=== PATIENT | male | born 1955 ===

== ENCOUNTER 2020-11-10 17:33 | Emergency (ER) | payer BC ==
[2020-11-10] MEDS: Acetaminophen 325 MG Tab PO ONE (18:12)
[2020-11-10] MEDS: Ondansetron 4 MG/2 ML SDV IVPUSH ONE (18:14)
--- NOTE | 2020-11-10 18:14 | EDM.PDOC ---
<Janet Moralez - Last Filed: 11/10/20 18:13> ED HPI GENERAL MEDICAL PROBLEM - General Chief Complaint: Respiratory Problem Stated Complaint: AMBULANCE Time Seen by Provider: 11/10/20 18:13 Source of Information: Reports: Patient, EMS, RN, RN Notes Reviewed History Limitations: Reports: No Limitations - History of Present Illness INITIAL COMMENTS - FREE TEXT/NARRATIVE: Zurdo is a 65 y/o male who presents to the ED via [facility] - Related Data Allergies Allergy/AdvReac Type Severity Reaction Status Date / Time No Known Allergies Allergy Verified 11/10/20 18:04 Past Medical History Endocrine/Metabolic History: Reports: Diabetes, Type II - Infectious Disease History Infectious Disease History: Reports: None - Past Surgical History Musculoskeletal Surgical History: Reports: Other (See Below) Other Musculoskeletal Surgeries/Procedures:: knee surgery Social & Family History - Family History Family Medical History: Unobtainable - Tobacco Use Tobacco Use Status *Q: Never Tobacco User Second Hand Smoke Exposure: No - Caffeine Use Caffeine Use: Reports: Coffee - Recreational Drug Use Recreational Drug Use: No Departure - Departure Disposition: Home, Self-Care 01 Clinical Impression: NSTEMI (non-ST elevated myocardial infarction) - Discharge Information Forms: ED Department Discharge <Leslee Steen Gilmar - Last Filed: 11/10/20 22:13> ED HPI GENERAL MEDICAL PROBLEM - History of Present Illness INITIAL COMMENTS - FREE TEXT/NARRATIVE: 18:40 Pt is here because he has not been feeling well for the last 3 days with a fever. He has been working in the [employer] and does not take his diabetes medications until later in the day as he doesn't like getting low while working. He denies any respiratory complaint, but was noted to have a low oxygen saturation and was started on NC. He denies any cough or shortness of breath. He did throw up once today. No diarrhea or constipation. He denies any pain anywhere. He denies any known exposure to COVID and did have his J&J vaccine in March. He denies any pulmonary problems outside of being sick. ED ROS GENERAL - Review of Systems Review Of Systems: Comprehensive ROS is negative, except as noted in HPI. ED EXAM, GENERAL - Physical Exam Exam: See Below Exam Limited By: No Limitations General Appearance: Alert, WD/WN, No Apparent Distress Eye Exam: Bilateral Eye: Normal Inspection Ears: Normal External Exam Throat/Mouth: Normal Voice, No Airway Compromise Head: Atraumatic, Normocephalic Neck: Supple, Non-Tender Respiratory/Chest: No Respiratory Distress, Lungs Clear, Normal Breath Sounds, No Accessory Muscle Use, Chest Non-Tender Cardiovascular: Normal Peripheral Pulses, Regular Rate, Rhythm, No Murmur GI/Abdominal: Soft, Non-Tender, No Distention (Male) Exam: Deferred Rectal (Males) Exam: Deferred Back Exam: Normal Inspection, Full Range of Motion Extremities: Other (left great toe callus with bleeding and moderate surrounding erythema.) Neurological: Alert, Oriented, Normal Cognition, No Motor/Sensory Deficits Psychiatric: Normal Affect Skin Exam: Warm, Dry #1 Interpretation EKG Date: 11/10/20 Rhythm: Other (sinus tachycardia with multiple PVCs) Bagley: Normal P-Wave: Present QRS: Normal ST-T: Normal QT: Normal Course - Vital Signs Last Recorded V/S: Last Vital Signs Temp 97.9 F 11/10/20 21:15 Pulse 73 11/10/20 21:15 Resp 16 11/10/20 21:15 BP 120/74 11/10/20 21:15 Pulse Ox 96 11/10/20 21:15 - Orders/Labs/Meds Orders: Active Orders 24 hr Category Date Time Status Venous Doppler Lwr Ext Bi [US] Urgent Exams 11/10/20 21:00 Ordered Heparin Sodium/0.45% NaCl [Heparin 25,000 Units in 1/2 Med 11/10/20 22:00 Ordered NS 500 ML] 25,000 units in 500 ml IV TITRATE Medication Orders Heparin Sodium/Sodium Chloride (Heparin 25,000 Units In 1/2 Ns 500 Ml) 25,000 units in 500 mls @ 20 mls/hr IV TITRATE YASMINE; Protocol Labs: Laboratory Tests 11/10/20 11/10/20 11/10/20 Range/Units 17:50 17:50 17:50 WBC 5.6 (5.0-10.0) 10^3/uL RBC 5.29 (4.6-6.2) 10^6/uL Hgb 14.9 (14.0-18.0) g/dL Hct 43.1 (40.0-54.0) % MCV 81.5 (80-100) fL MCH 28.2 (27.0-34.0) pg MCHC 34.6 (33.0-35.0) g/dL Plt Count 144 L (150-450) 10^3/uL Neut % (Auto) 81.6 H (42.2-75.2) % Lymph % (Auto) 7.5 L (20.5-50.1) % Maries % (Auto) 10.7 H (2-8) % Eos % (Auto) 0.0 L (1.0-3.0) % Baso % (Auto) 0.2 (0.0-1.0) % D-Dimer, Quantitative (0-400) ng/mL Sodium 135 L (136-145) mmol/L Potassium 3.8 (3.5-5.1) mmol/L Chloride 99 (98-107) mmol/L Carbon Dioxide 22 (21-32) mmol/L Anion Gap 17.8 H (7-13) mEq/L BUN 20 H (7-18) mg/dL Creatinine 1.26 (0.70-1.30) mg/dL Est Cr Clr Drug Dosing 74.64 mL/min Estimated GFR (MDRD) 58 BUN/Creatinine Ratio 15.9 (No establ ref range) Glucose 437 H* (70-99) mg/dL Lactic Acid (0.4-2.0) mmol/L Calcium 8.6 (8.5-10.1) mg/dL Magnesium 1.7 L (1.8-2.4) mg/dL Ferritin (26-388) mg/mL Total Bilirubin 0.9 (0.2-1.0) mg/dL AST 51 H (15-37) U/L ALT 57 (16-63) U/L Alkaline Phosphatase 131 H (46-116) U/L Troponin I High Sens 121 H* (<=76) pg/mL C-Reactive Protein 11.4 H (0.0-0.9) mg/dL Total Protein 7.5 (6.4-8.2) g/dL Albumin 3.4 (3.4-5.0) g/dL Globulin 4.1 Albumin/Globulin Ratio 0.8 SARS-CoV-2 RNA (MARYAM) Negative (NEGATIVE) 11/10/20 11/10/20 11/10/20 Range/Units 17:50 17:50 17:50 WBC (5.0-10.0) 10^3/uL RBC (4.6-6.2) 10^6/uL Hgb (14.0-18.0) g/dL Hct (40.0-54.0) % MCV (80-100) fL MCH (27.0-34.0) pg MCHC (33.0-35.0) g/dL Plt Count (150-450) 10^3/uL Neut % (Auto) (42.2-75.2) % Lymph % (Auto) (20.5-50.1) % Maries % (Auto) (2-8) % Eos % (Auto) (1.0-3.0) % Baso % (Auto) (0.0-1.0) % D-Dimer, Quantitative 3250 H (0-400) ng/mL Sodium (136-145) mmol/L Potassium (3.5-5.1) mmol/L Chloride (98-107) mmol/L Carbon Dioxide (21-32) mmol/L Anion Gap (7-13) mEq/L BUN (7-18) mg/dL Creatinine (0.70-1.30) mg/dL Est Cr Clr Drug Dosing mL/min Estimated GFR (MDRD) BUN/Creatinine Ratio (No establ ref range) Glucose (70-99) mg/dL Lactic Acid 2.1 H* (0.4-2.0) mmol/L Calcium (8.5-10.1) mg/dL Magnesium (1.8-2.4) mg/dL Ferritin 336 (26-388) mg/mL Total Bilirubin (0.2-1.0) mg/dL AST (15-37) U/L ALT (16-63) U/L Alkaline Phosphatase (46-116) U/L Troponin I High Sens (<=76) pg/mL C-Reactive Protein (0.0-0.9) mg/dL Total Protein (6.4-8.2) g/dL Albumin (3.4-5.0) g/dL Globulin Albumin/Globulin Ratio SARS-CoV-2 RNA (MARYAM) (NEGATIVE) 11/10/20 11/10/20 Range/Units 21:10 21:10 WBC (5.0-10.0) 10^3/uL RBC (4.6-6.2) 10^6/uL Hgb (14.0-18.0) g/dL Hct (40.0-54.0) % MCV (80-100) fL MCH (27.0-34.0) pg MCHC (33.0-35.0) g/dL Plt Count (150-450) 10^3/uL Neut % (Auto) (42.2-75.2) % Lymph % (Auto) (20.5-50.1) % Maries % (Auto) (2-8) % Eos % (Auto) (1.0-3.0) % Baso % (Auto) (0.0-1.0) % D-Dimer, Quantitative (0-400) ng/mL Sodium (136-145) mmol/L Potassium (3.5-5.1) mmol/L Chloride (98-107) mmol/L Carbon Dioxide (21-32) mmol/L Anion Gap (7-13) mEq/L BUN (7-18) mg/dL Creatinine (0.70-1.30) mg/dL Est Cr Clr Drug Dosing mL/min Estimated GFR (MDRD) BUN/Creatinine Ratio (No establ ref range) Glucose (70-99) mg/dL Lactic Acid 0.9 (0.4-2.0) mmol/L Calcium (8.5-10.1) mg/dL Magnesium (1.8-2.4) mg/dL Ferritin (26-388) mg/mL Total Bilirubin (0.2-1.0) mg/dL AST (15-37) U/L ALT (16-63) U/L Alkaline Phosphatase (46-116) U/L Troponin I High Sens 422 H* (<=76) pg/mL C-Reactive Protein (0.0-0.9) mg/dL Total Protein (6.4-8.2) g/dL Albumin (3.4-5.0) g/dL Globulin Albumin/Globulin Ratio SARS-CoV-2 RNA (MARYAM) (NEGATIVE) Meds: Medications Generic Name Dose Route Start Last Admin Trade Name Freq PRN Reason Stop Dose Admin Heparin Sodium/Sodium Chloride 25,000 units in 500 mls @ 20 mls/hr 11/10/20 22:00 Heparin 25,000 Units In 1/2 Ns 500 Ml IV TITRATE YASMINE Protocol 1,000 UNITS/HR Discontinued Medications Generic Name Dose Route Start Last Admin Trade Name Dimas PRN Reason Stop Dose Admin Acetaminophen 1,000 mg 11/10/20 17:56 11/10/20 18:12 Acetaminophen 325 Mg Tab PO 11/10/20 17:57 1,000 mg NOW ONE Administration Clopidogrel Bisulfate 300 mg 11/10/20 21:58 Clopidogrel 75 Mg Tab PO 11/10/20 21:59 ONETIME ONE Heparin Sodium (Porcine) 4,000 units 11/10/20 22:00 Heparin Sodium 5,000 Units/Ml Vial IVPUSH 11/10/20 22:01 .BOLUS ONE Sodium Chloride 1,000 mls @ 999 mls/hr 11/10/20 18:56 11/10/20 19:01 Normal Saline IV 11/10/20 19:56 999 mls/hr .BOLUS ONE Administration Piperacillin Sod/Tazobactam 100 mls @ 200 mls/hr 11/10/20 21:00 11/10/20 21:11 Sod 3.375 gm/ Sodium Chloride IV 11/10/20 21:29 200 mls/hr ONETIME ONE Administration Iopamidol 100 ml 11/10/20 19:36 11/10/20 19:41 Iopamidol 755 Mg/Ml 100 Ml Bottle IVPUSH 11/10/20 19:37 100 ml ONETIME ONE Administration Ondansetron HCl 4 mg 11/10/20 17:56 11/10/20 18:14 Ondansetron 4 Mg/2 Ml Sdv IVPUSH 11/10/20 17:57 4 mg ONETIME ONE Administration - Re-Assessments/Exams Free Text/Narrative Re-Assessment/Exam: Troponin was mildly elevated. EKG ordered as it had not been done previously. Pt denies any chest pain or discomfort. 11/10/20 18:54 EKG reviewed and found to be sinus tachycardia with multiple PVCs. Elevated d- dimer, will get CT PE protocol. 11/10/20 19:13 Repeat lactic acid, troponin. Start zosyn for antibiotic coverage. CT PE negative, will get DVT US. 11/10/20 21:00 Troponin increased to 422. Repeat EKG sinus, pt continues to deny chest pain. DVT US negative. Pt afebrile and hemodynamically stable. Called [facility] call and discussed case with Dr. Goodwin who agreed to accept the pt for transfer for NSTEMI. Heparin bolus and drip started. Plavix 300 mg given. 11/10/20 22:11 Departure - Departure Time of Disposition: 22:13 Condition: Good - Discharge Information *PRESCRIPTION DRUG MONITORING PROGRAM REVIEWED*: Not Applicable *COPY OF PRESCRIPTION DRUG MONITORING REPORT IN PATIENT SCOTTY: Not Applicable Sepsis Event Note (ED) - Focused Exam Vital Signs: Vital Signs Temp Pulse Resp BP Pulse Ox 11/10/20 21:15 97.9 F 73 16 120/74 96 11/10/20 17:59 102.7 F H 110 H 28 H 149/77 H 91 L - My Orders Last 24 Hours: My Active Orders 11/10/20 21:00 Venous Doppler Lwr Ext Bi [US] Urgent 11/10/20 22:00 Heparin Sodium/0.45% NaCl [Heparin 25,000 Units in 1/2 NS 500 ML] 25,000 units in 500 ml IV TITRATE - Assessment/Plan Last 24 Hours: My Active Orders 11/10/20 21:00 Venous Doppler Lwr Ext Bi [US] Urgent 11/10/20 22:00 Heparin Sodium/0.45% NaCl [Heparin 25,000 Units in 1/2 NS 500 ML] 25,000 units in 500 ml IV TITRATE
[2020-11-10 18:46] LABS: ANION GAP 17.8 mEq/L (7-13)
[2020-11-10] MEDS: Sodium Chloride 0.9% 1,000 ML IV ONE (19:01)
[2020-11-10] MEDS: Iopamidol 755 Mg/ML 100 ML Bottle IVPUSH ONE (19:41)
--- NOTE | 2020-11-10 20:40 | CT ---
PROCEDURE INFORMATION: Exam: CT Chest With Contrast; Diagnostic Exam date and time: 11/10/2020 7:57 PM Age: 65 years old Clinical indication: Other: D-dimer 3250; Additional info: Elevated d-dimer, dyspnea TECHNIQUE: Imaging protocol: Diagnostic computed tomography of the chest with contrast. Radiation optimization: All CT scans at this facility use at least one of these dose optimization techniques: automated exposure control; mA and/or kV adjustment per patient size (includes targeted exams where dose is matched to clinical indication); or iterative reconstruction. Contrast material: [id number]; Contrast volume: 80 ml; Contrast route: INTRAVENOUS (IV); COMPARISON: No relevant prior studies available. FINDINGS: Lungs: Mild bibasilar atelectasis. Lungs otherwise clear. Pleural spaces: Unremarkable. No pneumothorax. No pleural effusion. Heart: Unremarkable. No cardiomegaly. No pericardial effusion. Pulmonary arteries: There are no pulmonary emboli. Aorta: There is fusiform dilatation of the supravalvular ascending thoracic aorta which measures 3.9 cm. maximally. There is no dissection or saccular component. Lymph nodes: Unremarkable. No enlarged lymph nodes. Bones/joints: Unremarkable. No acute fracture. Soft tissues: Unremarkable. IMPRESSION: 1. There is fusiform dilatation of the supravalvular ascending thoracic aorta which measures 3.9 cm. maximally. There is no dissection or saccular component. 2. There are no pulmonary emboli. 3. No acute pulmonary parenchymal abnormalities.
[2020-11-10] MEDS: Piperacillin/Tazobactam 3.375 GM in Sodium Chloride 0.9% 100 ML IV ONE (21:11)
[2020-11-10] MEDS: Heparin Sodium 5,000 Units/ML Vial IVPUSH ONE (22:13)
[2020-11-10] MEDS: Clopidogrel 75 MG Tab PO ONE (22:14)
[2020-11-10] MEDS: Heparin Sodium/0.45% NaCl 25,000 UNITS/500 ML BAG IV SCH (22:16)
--- NOTE | 2020-11-10 22:37 | US ---
PROCEDURE INFORMATION: Exam: US Duplex Lower Extremity Veins, Bilateral Exam date and time: 11/10/2020 9:27 PM Age: 65 years old Clinical indication: Other: Elevated d-dimer; Additional info: Elevated ddimer TECHNIQUE: Imaging protocol: Real-time duplex ultrasound of the extremities with 2-D huerta scale, color Doppler flow and spectral waveform analysis with image documentation. Complete exam focused on the bilateral lower extremity veins. Total images: 53 COMPARISON: No relevant prior studies available. FINDINGS: Right deep veins: Unremarkable. The common femoral, femoral, proximal profunda femoral and popliteal veins are patent without thrombus. Normal Doppler waveforms. Normal compressibility and/or augmentation response. Right superficial veins: Saphenofemoral junction is patent without thrombus. Left deep veins: Unremarkable. The common femoral, femoral, proximal profunda femoral and popliteal veins are patent without thrombus. Normal Doppler waveforms. Normal compressibility and/or augmentation response. Left superficial veins: Saphenofemoral junction is patent without thrombus. Soft tissues: Unremarkable. IMPRESSION: No evidence of deep vein thrombosis.
== END 2020-11-10 23:06 | disposition home or self-care (01) ==
LOC: DL.ED 17:33
DX: I21.4 Non-ST elevation (NSTEMI) myocardial infarction (principal); E11.9 Type 2 diabetes mellitus without complications; Z20.822 Contact with and (suspected) exposure to COVID-19
CPT/HCPCS: 36415; 71260; 80053; 82728; 82947; 83605; 83735; 84484; 85025; 85379; 86140; 87635; 93005; 93970; 96365; 96367; 96375; 99285; A9270; J1644; J2405; J2543; J7030; Q9967; U0002